=== PATIENT | male | born 1960 | race African-American/Black ===

== ENCOUNTER 2017-03-21 07:11 | Day surgery (SDC) | payer OTHER ==
[~2017-03-21] VITALS: Ht 172.7 cm; Wt 79.2 kg
[~2017-03-21 07:11] MED LIST: ALBUTEROL INH; ASPI-481 PO; BENAZEPRIL PO; HYDROCHLOROTHIAZIDE PO; MOBIC PO; [UNRECOGNIZED DRUG - REMARK] PO
[2017-03-21 07:52] VITALS: Ht 172.7 cm; Wt 79.2 kg
[2017-03-21 08:00] VITALS: BP 119/75; PULSE 68; RESP 18
[2017-03-21] MEDS ORDERED: NIFEDIPINE PO (08:03)
[2017-03-21] MEDS ORDERED: TRHC5025 PO (08:03)
[2017-03-21] MEDS ORDERED: PAIN MEDS (08:03)
[2017-03-21] MEDS ORDERED: BENAZEPRIL PO (08:03)
[2017-03-21 09:11] VITALS: BP 123/82; PULSE 93; RESP 14
[2017-03-21] MEDS ORDERED: PROPOFOL 60 ML ONE (18:03)
[2017-03-21] MEDS ORDERED: LIDOCAINE 2% (SDV) 5 ML INJ ONE (18:03)
--- NOTE | 2017-03-22 06:27 | GILP ---
DATE OF PROCEDURE: PROCEDURE PERFORMED: 1. Esophagogastroduodenoscopy and biopsy. 2. Colonoscopy and biopsy. SURGEON: Yehuda Malhotra MD PREOPERATIVE DIAGNOSIS: 1. Rectal bleeding. 2. Change in bowel habits. 3. Loss of appetite and weight loss. POSTOPERATIVE DIAGNOSES: 1. Gastritis with erosions. 2. Gastric mucosal biopsies were taken for H. pylori test. 3. Colonoscopy all the way to the cecum. 4. Poor prep making the exam very suboptimal. 5. Diverticulosis of the colon. 6. 2 small polyp from the transverse colon as well as the sigmoid colon were removed using the biopsy forceps. 7. Internal hemorrhoids. INDICATION: Mr. Jovani Dill is a 56-year-old male patient who had change in the bowel habits associated with rectal bleeding. The patient was also complaining of loss of appetite and weight loss. The patient was scheduled for endoscopy and colonoscopy for further evaluation. The procedures and possible complications were well explained to the patient. He understood and consented to the procedures. DESCRIPTION OF PROCEDURE: The gastroscope was carefully introduced into the esophagus and was advanced to the stomach. Gastric mucosal biopsies were taken for H. pylori test. Duodenum was normal. The colonoscope was carefully introduced in the rectum. Under direct vision it was advanced all the way to the cecum. The patient had poor prep making the exam suboptimal. He was noted to have diverticulosis of the colon. He had 2 small colon polyps, He was awake with stable vital signs. He was discharged home in care of his family. IMPRESSION: Please see postop diagnosis. PLAN: 1. Omeprazole 40 mg p.o. q.p.m. 2. Anusol HC 2.5 percent cream q.h.s. p.r.n. 3. Await Helicobacter pylori test report. 4. Poor prep and suboptimal nature of the examination. Repeat colonoscopy with better preparation in 1 year. Dictated By: MD ALBERTO Mendiola/von/trey /Document#: [id number] [facility]
== END 2017-03-21 09:32 | disposition home or self-care (01) ==
LOC: GIL 07:11
PROVIDERS: ATTEND Internal Medicine Gastroenterology
DX: R19.4 Change in bowel habit (principal); K29.60 Other gastritis without bleeding; K57.90 Diverticulosis of intestine, part unspecified, without perforation or abscess without bleeding; D12.5 Benign neoplasm of sigmoid colon; K64.8 Other hemorrhoids; I10 Essential (primary) hypertension; J45.909 Unspecified asthma, uncomplicated
CPT/HCPCS: 43239; 45380; 87081; 88305; Z7610